=== PATIENT | male | born 1950 ===

== ENCOUNTER 2017-11-15 08:06 | Outpatient (CLI) | payer OTHER ==
[~2017-11-15] VITALS: Ht 152.4 cm; Wt 72.6 kg
== END 2017-11-15 08:25 | disposition home or self-care (01) ==
LOC: OFIC 805 08:06
DX: H61.23 Impacted cerumen, bilateral (principal); H60.593 Other noninfective acute otitis externa, bilateral; M26.69 Other specified disorders of temporomandibular joint